=== PATIENT | female | born 1955 | race Caucasian/White ===

== ENCOUNTER 2022-08-11 02:28 | Emergency (ER) | payer OTHER ==
[~2022-08-11] VITALS: Ht 157.5 cm; Wt 73.5 kg
[2022-08-11 03:05] LABS: BASOPHILS ABSOLUTE AUTO 0.04 K/mm3 (0.00-0.23); BASOPHILS PERCENT AUTO 1 % (0-2); EOSINOPHILS ABSOLUTE AUTO 0.16 K/mm3 (0.00-0.68); EOSINOPHILS PERCENT AUTO 2 % (0-6); Hematocrit 36.4 % (33.0-51.0); Hemoglobin 12.1 g/dL (11.5-16.0); IMMATURE GRAN ABSOLUTE AUTO 0.03 K/mm3 (0.00-0.10); IMMATURE GRAN PERCENT AUTO 0 % (0-1); LYMPHOCYTES ABSOLUTE AUTO 2.96 K/mm3 (0.84-5.20); LYMPHOCYTES PERCENT AUTO 37 % (21-46); MONOCYTES PERCENT AUTO 9 % (4-13); Mean Corpuscular HGB 31.1 pg (26.0-34.0); Mean Corpuscular HGB Conc 33.2 g/dL (31.5-36.5); Mean Corpuscular Volume 94 fL (80-100); Mean Platelet Volume 9.1 fL (9.1-12.4); NEUTROPHILS ABSOLUTE AUTO 4.08 K/mm3 (1.96-9.15); NEUTROPHILS PERCENT AUTO 51 % (41-73); Platelet Count 299 K/mm3 (150-400); RDW Coefficient Variation 13.8 % (11.7-14.2); RDW Standard Deviation 47.2 fL (35.1-46.3); Red Blood Cell Count 3.89 M/mm3 (3.80-5.20); White Blood Cell Count 7.97 K/mm3 (4.00-11.30)
[2022-08-11 03:24] LABS: Albumin, Blood 3.6 g/dL (3.4-5.0); Albumin/Globulin Ratio 1.2 (0.8-1.8); Bilirubin, Total 0.5 mg/dL (0.1-1.0); Bun/Creatinine Ratio 14.5 (12.0-20.0); Calcium, Blood 9.2 mg/dL (8.5-10.1); Creatinine, Blood 0.83 mg/dL (0.40-1.00); Potassium, Blood 4.4 mmol/L (3.5-5.5); Total Protein, Blood 6.6 g/dL (6.4-8.2)
[2022-08-11] MEDS ORDERED: CYCL10 PO (04:15)
== END 2022-08-11 04:39 | disposition home or self-care (01) ==
LOC: ER 02:28
PROVIDERS: Emergency Medicine
DX: R10.9 Unspecified abdominal pain (principal); M54.50 Low back pain, unspecified
CPT/HCPCS: 36415; 71046; 80053; 84484; 85025; 93005; 93010; A9270; J1885; J2405; J3010

== ENCOUNTER → 2024-10-15 | Outpatient (CLI) | payer OTHER ==
[~2024-10-15] MED LIST: CYCL10 PO
[2024-10-16 18:19] LABS: COTININE, URN, SCREEN Negative ng/mL (Cutoff 100)
== END | disposition home or self-care (01) ==
LOC: LAB SHORT 15:41 → LAB 15:41
PROVIDERS: Orthopaedic Surgery
DX: M17.12 Unilateral primary osteoarthritis, left knee (principal)

== ENCOUNTER 2024-11-20 11:02 | Day surgery (SDC) | payer OTHER ==
[2024-11-20] VITALS (17 sets, daily range): BP systolic 90–138; BP diastolic 49–85
[~2024-11-20] VITALS: Ht 157.5 cm; Wt 83.9 kg
[~2024-11-20 11:02] MED LIST changes: +ATOR20 PO; +Acetaminophen 500 MG Tab PO SCH; +CeFAZolin Sodium 2,000 MG in NS 100 ML IV SCH; +Chlorhexidine Mouth Care 15 ML UDC MT SCH; +IBUP800 PO; +Lactated Ringer's 1,000 ML IV SCH; +MULVITA PO; +OxyCODONE HCL 10 MG TABCR PO SCH; +Ropivacaine 0.5% HCl/Pf 123.125 MG,EPINEPHrine HCL 0.25 MG,Ketorolac Tromethamine 15 MG... INFIL SCH; +Tranexamic Acid 1,000 MG in NS 100 ML IV SCH
[2024-11-20] MEDS ORDERED: propofoL 20 ML IV ONE ×3 (11:24→13:26)
[2024-11-20] MEDS ORDERED: FentaNYL Citrate 50 MCG/ML 2 ML Injection ONE (11:32)
--- NOTE | 2024-11-20 11:52 | NUR ---
AMBULATORY INTO [facility]. PT REPORTS 6/10 LEFT KNEE PAIN. HISTORY AND ALLERGIES REVIEWED. LUNGS CLEAR-SATS>90% ON RA. NPO STATUS CONFIRMED. PT SPOUSE STEPHANIE GIVEN PT BELONGINGS. PT DENTURES AND GLASSES TO PACU.
[2024-11-20] MEDS ORDERED: CeFAZolin Sodium 2,000 MG VIAL ONE (11:53)
[2024-11-20] MEDS ORDERED: Ondansetron HCl 2 MG / ML 2ML Vial ONE (12:19)
[2024-11-20] MEDS ORDERED: Dexamethasone Sod Phos 10 MG/ML 1ML VIAL ONE (12:19)
[2024-11-20] MEDS ORDERED: Ketorolac Tromethamine 30mg Vial ONE (12:20)
[2024-11-20] MEDS ORDERED: Midazolam HCl 1MG / ML 2ML Vial ONE (12:23)
[2024-11-20] MEDS ORDERED: ePHEDrine Sulfate 50 MG/ML 1ML Injection ONE (12:41)
[2024-11-20] MEDS ORDERED: Magnesium Hydroxide Conc 10 ML UDC PO PRN ×2 (14:10→15:30)
[2024-11-20] MEDS ORDERED: Lactated Ringer's 1,000 ML IV SCH ×2 (14:10→15:30)
[2024-11-20] MEDS ORDERED: Promethazine HCl 25 MG Tab PO PRN (14:10)
[2024-11-20] MEDS ORDERED: Ondansetron HCl 2 MG / ML 2ML Vial IV PRN ×2 (14:10→15:25)
[2024-11-20] MEDS ORDERED: DiphenhydrAMINE HCL 25 MG Cap PO PRN ×2 (14:15→15:20)
[2024-11-20] MEDS ORDERED: HYDROmorphone HCl/Pf 1MG SYR IV PRN ×2 (14:15→15:30)
[2024-11-20] MEDS ORDERED: FLU VACC TS2024-25(6MOS UP)/PF 45 MCG/0.5 ML SYRINGE IM SCH ×2 (14:15→15:20)
[2024-11-20] MEDS ORDERED: Metoclopramide HCl 5MG / ML 2ML Vial IV PRN ×2 (14:15→15:25)
[2024-11-20] MEDS ORDERED: Bisacodyl 10 MG Supp PR PRN ×2 (14:20→15:20)
[2024-11-20] MEDS ORDERED: HYDROcodone 5-APAP 325 TAB PO PRN ×2 (14:20→15:30)
[2024-11-20] MEDS ORDERED: OxyCODONE HCL 5 MG TAB PO PRN ×2 (15:25)
[2024-11-20] MEDS ORDERED: Acetaminophen 500 MG Tab PO SCH ×2 (16:00)
--- NOTE | 2024-11-20 16:34 | NUR ---
POST OP NOTE PT IS A/O X4, POD0 FOR L TKA. GISELLE WRAP DRESSING C/D/I. CAP REFILL TO L FOOT <3 SECS, PT REPORTING ALMOST COMPLETE SENSATION RETURN TO BLE AFTER SPINAL AND IS ABLE TO WIGGLE TOES. VSS. PT TOLERATING PO SNACKS AND FLUIDS. SALINE LOCKED. LAURA RAMIREZ, SCDS IN PLACE. PT MEDICATED FOR PAIN PER EMAR W/ PRN PO PAIN MEDS. FAMILY AT BEDSIDE. PT EDUCATED REGARDING THE NEED FOR ASSISTANCE WHEN READY TO AMBULATE. CALL LIGHT IN REACH.
[2024-11-20] MEDS ORDERED: Ketorolac Tromethamine 15mg Vial IV SCH (18:00)
[2024-11-20] MEDS ORDERED: CeFAZolin Sodium 2,000 MG in NS 100 ML IV SCH (20:45)
[2024-11-20] MEDS ORDERED: Docusate Sodium 100 MG Cap PO SCH ×2 (21:00)
[2024-11-21 04:07] VITALS: BP 105/55
[2024-11-21 05:02] LABS: BASOPHILS ABSOLUTE AUTO 0.01 K/mm3 (0.00-0.23); BASOPHILS PERCENT AUTO 0 % (0-2); EOSINOPHILS PERCENT AUTO 0 % (0-6); Hematocrit 29.7 % (33.0-51.0); Hemoglobin 9.9 g/dL (11.5-16.0); IMMATURE GRAN ABSOLUTE AUTO 0.03 K/mm3 (0.00-0.10); IMMATURE GRAN PERCENT AUTO 0 % (0-1); LYMPHOCYTES ABSOLUTE AUTO 0.92 K/mm3 (0.84-5.20); LYMPHOCYTES PERCENT AUTO 9 % (21-46); MONOCYTES ABSOLUTE AUTO 0.77 K/mm3 (0.16-1.47); MONOCYTES PERCENT AUTO 7 % (4-13); Mean Corpuscular HGB 31.4 pg (26.0-34.0); Mean Corpuscular HGB Conc 33.3 g/dL (31.5-36.5); Mean Corpuscular Volume 94 fL (80-100); Mean Platelet Volume 9.4 fL (9.1-12.4); NEUTROPHILS ABSOLUTE AUTO 9.02 K/mm3 (1.96-9.15); NEUTROPHILS PERCENT AUTO 84 % (41-73); Platelet Count 276 K/mm3 (150-400); RDW Coefficient Variation 13.2 % (11.7-14.2); RDW Standard Deviation 45.4 fL (35.1-46.3); Red Blood Cell Count 3.15 M/mm3 (3.80-5.20); White Blood Cell Count 10.75 K/mm3 (4.00-11.30)
[2024-11-21 05:30] LABS: Bun/Creatinine Ratio 19.5 (12.0-20.0); Calcium, Blood 9.2 mg/dL (8.5-10.1); Creatinine, Blood 0.72 mg/dL (0.40-1.00); Magnesium, Blood 2.1 mg/dL (1.6-2.4); Potassium, Blood 4.4 mmol/L (3.5-5.5)
--- NOTE | 2024-11-21 06:07 | NUR ---
SHIFT SUMMARY NOC. PT POD 1 FOR ELECTIVE LEFT TOTAL KNEE. PT A/O X4. PT MEDICATED FOR PAIN PER EMAR WITH REPORTED RELIEF OF SX. PT VOIDING URINE AND TOLERATING PO INTAKE. PT'S GISELLE AND AQUACEL IS C/D/I. SPINAL HAS WORN OFF, PT AMBULATES WELL WITH MINIMAL ASSIST, FWW, AND GB. PT RESTED WITH EYES CLOSED AND CALL LIGHT IN REACH.
[2024-11-21 07:35] VITALS: BP 104/61
[2024-11-21] MEDS ORDERED: ASPI81CH PO (08:00)
--- NOTE | 2024-11-21 08:45 | NUR ---
PT PROVIDED WITH WRITTEN AND VERBAL DISCHARGE INSTRUCTIONS, SHE REPORTED UNDERSTADING. PT WAITING FOR HER TRANSPORTATION HOME.
[2024-11-21] MEDS ORDERED: Atorvastatin 10 MG Tab PO SCH (09:00)
[2024-11-21] MEDS ORDERED: Aspirin 81 MG Chew PO SCH ×2 (09:00)
[2024-11-21] MEDS ORDERED: Multivitamins 1 Tab PO SCH (09:00)
--- NOTE | 2024-11-21 10:22 | NUR ---
PT DISCHARGED HOME AT 0906.
== END 2024-11-21 09:07 | disposition home or self-care (01) ==
LOC: ORSCMMR 11:02 → ORD 12:30 → SURS 15:19 → ORSCMMR 11-21 09:07
PROVIDERS: Orthopaedic Surgery
PROC: 0SRD0JA Replacement of Left Knee Joint with Synthetic Substitute, Uncemented, Open Approach (ICD-10-PCS; principal; 2024-11-20 12:30)
DX: M17.12 Unilateral primary osteoarthritis, left knee (principal); Z96.651 Presence of right artificial knee joint; E78.5 Hyperlipidemia, unspecified; Z79.899 Other long term (current) drug therapy; Z87.891 Personal history of nicotine dependence
CPT/HCPCS: 36415; 73560-LT; 80048; 83735; 85025; 97116; 97161; 97530; A9270; C1713; C1776; J0171; J0690; J0735; J1100; J1885; J2250; J2405; J2704; J2795; J3010; J7120